=== PATIENT | female | born 1975 | race Caucasian/White ===

== ENCOUNTER 2017-06-09 23:51 | Emergency (ER) | payer OTHER ==
[~2017-06-09] VITALS: Ht 157.5 cm; Wt 56.7 kg
[2017-06-09 23:53] VITALS: BP 116/73
--- NOTE | 2017-06-10 00:01 | NUR ---
PT TAKEN TO BED 12
--- NOTE | 2017-06-10 00:02 | NUR ---
Dr. Powell evaluating patient at bedside.
[2017-06-10] MEDS ORDERED: ONDANSETRON 4 MG/2 ML VIAL IVP ONE (00:05)
[2017-06-10] MEDS ORDERED: KETOROLAC 30 MG/ML VIAL IVP ONE (00:05)
[2017-06-10] MEDS ORDERED: NACL 0.9% 1,000 ML IV ONE (00:05)
--- NOTE | 2017-06-10 00:05 | NUR ---
PATIENT IS A 42 Y/O FEMALE WHO PRESENTS TO THE ED C/O DIZZINESS. PT STATES, "I DIDN'T FEEL SO GOOD TODAY." PT REPORTS 9/10 ACHING PAIN ON THE HEAD THAT DOES NOT RADIATE. PT DENIES CP, SOB, NAUSEA/DIARRHEA, REPORTS VOMITING X1. PT AAOX4, AMBULATED TO BED WITH STEADY GAIT, RR EVEN/UNLABORED, PERRLA. PT REPOSITIONED FOR COMFORT, BED IN LOWEST POSITION. ER MD DR. ELDER NOTIFIED. WILL CONTINUE TO MONITOR.
--- NOTE | 2017-06-10 00:40 | NUR ---
Note sydney in EDM - 06/10/17 at 0041 by CIRO Patient discharged with v/s stable. Written and verbal after care instructions given and explained. Patient alert, oriented and verbalized understanding of instructions. Ambulatory with steady gait. All questions addressed prior to discharge. ID band removed. Patient advised to follow up with PMD. Rx of NAPROSYN AND FLEXERIL given. Patient educated on indication of medication including possible reaction and side effects. Opportunity to ask questions provided and answered.
[2017-06-10] MEDS ORDERED: MECLIZINE 25 MG TAB PO ONE (00:55)
--- NOTE | 2017-06-10 01:21 | NUR ---
PHLEB AT BEDSIDE FOR LAB DRAWS
[2017-06-10] MEDS ORDERED: METOCLOPRAMIDE 10 MG/2 ML INJ VIAL IVP ONE (01:40)
[2017-06-10 01:41] LABS: HEMATOCRIT 41.7 % (36-48); HEMOGLOBIN 13.7 g/dL (12.0-16.0); MEAN CORPUSCULAR HEMOGLOBIN 31 pg (27-31); MEAN CORPUSCULAR HGB CONC 33 g/dL (33-37); MEAN CORPUSCULAR VOLUME 94 fL (80-94); PLATELET COUNT (AUTO) 252 K/uL (140-450); RED BLOOD CELL COUNT(AUTO) 4.42 MIL/uL (4.20-5.40); RED CELL DISTRIBUTION WIDTH 12.4 % (11.6-13.7); WHITE BLOOD COUNT (AUTO) 8.6 K/uL (4.8-10.8)
[2017-06-10 01:55] LABS: EOSINOPHILS % (MANUAL) 2 % (0-4); LYMPHOCYTES % (MANUAL) 18 % (20-46); MONOCYTES % (MANUAL) 3 % (5-12)
[2017-06-10 02:02] LABS: ANION GAP 12.3 (8-16); CARBON DIOXIDE 27.6 mmol/L (21-32); CREATININE 0.8 mg/dL (0.6-1.3); POTASSIUM 3.9 mmol/L (3.5-5.1)
[2017-06-10 02:08] LABS: ALBUMIN 4.1 g/dL (3.4-5.0); TOTAL BILIRUBIN 0.3 mg/dL (0.0-1.0)
[2017-06-10 02:18] VITALS: BP 101/62
--- NOTE | 2017-06-10 02:18 | NUR ---
Patient discharged with v/s stable. Written and verbal after care instructions given and explained. Patient alert, oriented and verbalized understanding of instructions. Ambulatory with steady gait. All questions addressed prior to discharge. ID band removed. Patient advised to follow up with PMD. Rx of meclizine hydrochloride 25mg q12hrs, REGLAN 10MG Q12HRS/PRN given. Patient educated on indication of medication including possible reaction and side effects. Opportunity to ask questions provided and answered.
== END 2017-06-10 02:18 | disposition home or self-care (01) ==
LOC: MED 23:51
DX: R51 Headache (principal); R11.0 Nausea; R42 Dizziness and giddiness
CPT/HCPCS: 36415; 80053; 81002; 81025; 85025; 96361; 96374; 96375; 99285; J1885; J2405; J2765; J7030; J8597